=== PATIENT | male | born 2000 | race Caucasian/White ===

== ENCOUNTER 2024-11-22 15:12 | Emergency (ER) | payer OTHER, SELFPAY ==
[2024-11-22 15:19] VITALS: BP 118/95; PULSE 60; RESP 18; TEMP 36.6; O2SAT 100
--- NOTE | 2024-11-22 15:19 | ED.WOUNDLAC ---
HPI - Wound/Laceration General Chief Complaint: Wound/Laceration Stated Complaint: I need a tetanus shot Time Seen by Provider: 11/22/24 15:19 Focused HPI: This is a 24 year old male that presents to the ER for a tetanus vaccination. Reports he stepped on a leticia nail yesterday at work. Small puncture wound to the right foot. GENERAL: Well-appearing, well-nourished, and in no acute distress. HEAD: Normocephalic, atraumatic. CHEST: Clear to auscultation. ?No respiratory distress. HEART: Regular rate and rhythm.? NEURO: ?Alert and oriented x3. Patient screened in triage and initial orders placed.? ?Additional care and disposition to be based upon?diagnostic testing and treatment. Related Data Allergies Allergy/AdvReac Type Severity Reaction Status Date / Time No Known Allergies Allergy Verified 11/22/24 15:13 Review of Systems Review of Systems: All systems reviewed & are unremarkable except as noted in HPI and below PMFSH Past Medical History Medical History (Updated 11/22/24 @ 15:29 by Syeda Sanchez PA-C) No active medical problems Exam Narrative: GENERAL: Well-appearing, well-nourished, and in no acute distress. HEAD: Normocephalic, atraumatic. EYES: EOMI. EXTREMITIES: Normal range of motion. No edema. Small puncture wound to the right foot plantar surface SKIN: Warm, dry, no rash. NEURO: No focal deficits. Alert and oriented x3. PSYCH: Normal mood and affect Course Vital Signs Vital signs: Vital Signs Temperature 97.8 F 11/22/24 15:19 Pulse Rate 60 11/22/24 15:19 Respiratory Rate 18 11/22/24 15:19 Blood Pressure 118/95 H 11/22/24 15:19 Pulse Oximetry 100 11/22/24 15:19 Temperature 97.8 F 11/22/24 15:19 Pulse Rate 60 11/22/24 15:19 Respiratory Rate 18 11/22/24 15:19 Blood Pressure 118/95 H 11/22/24 15:19 Pulse Oximetry 100 11/22/24 15:19 MDM - Wound/Laceration MDM Narrative Medical decision making narrative: Patient presents to the emergency department after a puncture wound to right foot plantar surface yesterday. Updated on tetanus. Will be started on prophylactic antibiotics. He is to follow up with primary provider. Given warnings to return to the ER Critical Care Time Critical Care Time Critical Care Time: No Discharge Plan Discharge Clinical Impression: Puncture wound Patient Disposition: Home Condition: Stable Instructions: Antibiotic Form, Puncture Wound (ED) Additional Instructions: Return to the emergency department if you experience fever, redness or swelling of your wound, abnormal drainage from your wound, or any other symptoms that are concerning to you. Apply antibiotic ointment daily. Do not soak the wound. Clean with mild soap and water daily. Take oral antibiotic as prescribed Follow-up with your primary care doctor for wound check Patient Language: Macedonian Prescriptions: New cephalexin 500 mg tablet 500 mg PO Q8H 3 Days Qty: 9 0RF Follow-up/Referrals: PHYSICIAN NOT ON STAFF,NONSTAFF [Primary Care Provider] -
[2024-11-22] MEDS: TETANUS,DIPHTHERIA,AC PERTUSSIS ADULT (0.5 ML) BOOSTRIX IM (15:34)
--- OUTSIDE RECORDS SUMMARY | 2024-11-22 15:55 | XMS_ITS | Clinical Summary ---
Author Organization [email or web address] Address [address] [place] [address] Care Team Providers Care Compliance Monitor Name Role Phone Sara Hough MD Primary Care Provider [phone] Source Comments [email or web address],non-owned Affiliates and Associated Physician Practices is amultiple site organization consisting of ambulatory clinics and hospital sitesin [place], [place], [place] and [place]. This disclosure is being madepursuant to the Care Everywhere program and may not contain all information available regarding this patient. Last updated 18.[email or web address] Allergies No known active allergies Medications * Be aware that medications may not be up to date on this document. Alwaysverify current medications with the patient. No known medications Active Problems No known active problems Immunizations Immunization Administration Dates Next Due Covid Moderna primary monovalent 12+ yr 0.5mL ,10/06/2020 Family History Medical History Relation Name Comments Atrial Fibrillation Father Hypertension Father Hypertension Mother Hypertension Paternal Grandmother Relation Name Status Comments Father Mother Paternal Grandmother Social History Tobacco Use Types Packs/Day Years Used Date Smoking Tobacco: Never Smokeless Tobacco: Never Tobacco Cessation:Counseling Given: Not Answered Alcohol Use Standard Drinks/Week Comments Yes 0 (1 standard drink = 0.6 oz pur e alcohol) PHQ-2 Answer Date Recorded PHQ2 TOTAL SCORE 0 09/04/2022 Sex and Gender Information Value Date Recorded Sex Assigned at Not on file Legal Sex Male 5:03 PM [employer] Gender Identity Not on file Sexual Orientation Not on file Last Filed Vital Signs Vital Sign Reading Time Taken Comments Blood Pressure 104/64 10/09/2022 2:07 PM CDT Pulse 68 10/09/2022 2:07 PM CDT Temperature 36.7 C (98 F) 06/23/2021 3:45 PM [employer] Respiratory Rate 16 06/23/2021 3:45 PM [employer] Oxygen Saturation 99% 10/09/2022 2:07 PM CDT Inhaled Oxygen Concentration - - Weight 65.8 kg (145 lb) 10/09/2022 2:07 PM CDT Height 162.6 cm (5' 4 ) 10/09/2022 2:07 PM CDT Body Mass Index 24.89 10/09/2022 2:07 PM CDT Plan of Treatment Health Maintenance Due Date Last Done Comments DTAP/TDAP/TD VACCINES (1 - Tdap) 2018 COVID-19 VACCINE (3 - 2023-2 5 season) 2024 11/03/2020, 10/06/2020 DEPRESSION SCREENING 07/21/2024 09/04/2022 INFLUENZA VACCINE (Season Ended) 2025 ZOSTER VACCINE (1 of 2) 2049 HEPATITIS B VACCINE Discontinued HEPATITIS C SCREENING Discontinued HIB VACCINE Aged Out No longer eligi ble based on patient's age to complete this topic HIV SCREENING Discontinued HPV VACCINE Discontinued MENINGOCOCCAL (Group B) VACCINE SHARED DECISION-MAKING Aged Out No longer eligible based on patient's age to complete this topic MENINGOCOCCAL GROUPS A/C/Y/W VACCINE Aged Out No longer eligible based on patient's age to complete this topic PNEUMOCOCCAL VACCINE Aged Out No long er eligible based on patient's age to complete this topic Insurance [employer] Care Teams Compliance Monitor Relationship Specialty Start Date End Date Sara Hough MD [id number] [id number] PCP - General Family Medicine 09/04/22
== END 2024-11-22 17:21 | disposition home or self-care (01) ==
PROVIDERS: Emergency Provider Physician Assistant
DX: S91.341A Puncture wound with foreign body, right foot, initial encounter (principal); W45.0XXA Nail entering through skin, initial encounter; Z23 Encounter for immunization
CPT/HCPCS: 90471; 90715; 99283